=== PATIENT | male | born 1970 | race Caucasian/White ===

== ENCOUNTER → 2020-06-27 10:17 | Outpatient (CLI) | payer BC, SELFPAY ==
--- NOTE | ~2020-06-27 | MR_ITS ---
EXAMINATION: MR shoulder RT wo con DATE: 06/27/2020 11:02 INDICATION: Right shoulder pain. TECHNIQUE: Magnetic resonance imaging (MRI) of the right shoulder was performed without intravenous c ontrast. Sequences included axial PD-weighted FS FSE, coronal oblique PD-weighted FS FSE and T2-weigh denis FS FSE, and sagittal oblique T2-weighted FS FSE and T1-weighted FSE. COMPARISON: None. FINDINGS: Coracoacromial arch: The acromion undersurface is curved in morphology (type II). There is mild acromioclavicular joint os teoarthritis. There is mild subacromial/subdeltoid bursitis. Rotator cuff: There is mild supraspinatus and infraspinatus tendinopathy. Teres minor tendon is normal. There is mi ld subscapularis tendinopathy. No tear. There is no asymmetric fatty atrophy of the rotator cuff musc le bellies. Biceps tendon and glenoid labrum: Biceps tendon is in bicipital groove. There is mild intra-articular biceps tendinopathy. There is deg eneration of superior labrum without well-defined tear. Fluid: There is no glenohumeral joint effusion. Bones/cartilage: There is cartilage surface irregularity of humeral head. The glenoid cartilage is normal. IMPRESSION: 1. Mild rotator cuff tendinopathy. No tear. 2. Mild glenohumeral joint chondrosis. 3. Mild acromioclavicular joint osteoarthritis. 4. Mild subacromial/subdeltoid bursitis. 5. Mild intra-articular biceps tendinopathy. Reviewed, dictated and finalized at location A.
== END ==
DX: M19.011 Primary osteoarthritis, right shoulder (principal); M75.51 Bursitis of right shoulder
CPT/HCPCS: 73221

== ENCOUNTER 2020-11-05 18:29 | Emergency (ER) | payer BC, SELFPAY ==
[2020-11-05] VITALS (45 sets, daily range): BP systolic 114–141; BP diastolic 67–110; PULSE 66–160; RESP 10–28; O2SAT 95–100
--- NOTE | 2020-11-05 18:45 | PC.NURSE ---
patient here with atrial fibrillation. see triage notes. alert. oriented. on athletic monitor. EKG done. SL inserted. labs drawn. patient and updated on current treatment plan. waiting for orders from provider.
--- NOTE | 2020-11-05 18:46 | ECG_ITS ---
Measurements Intervals [place] Rate: 128 P: VA: 0 QRS: 13 QRSD: 85 T: -17 QT: 304 QTc: 445 Interpretive Statements ATRIAL FIBRILLATION WITH RAPID VENTRICULAR RESPONSE CANNOT RULE OUT SEPTAL INFARCT, AGE INDETERMINATE BORDERLINE ST ABNORMALITY- ANTEROLATERAL LEADS BASELINE ARTIFACT- I, II, III, AVR, AVL, AVF ABNORMAL ECG Electronically Signed On 11-06-2020 7:18:06 DIRECTOR TALENT ACQUISITION by Ike iGbbs D.O.
[2020-11-05 19:01] LABS: Basophils Percent Auto 0.5 % (0.2-1.2); Eosinophils Absolute Auto 0.1 K/mm3 (0-0.3); Hematocrit 41.1 % (42.0-52.0); Hemoglobin 14.5 g/dL (14.0-18.0); Immature Granulocyte Absolute 0.03 K/mm3 (0.00-0.031); Immature Granulocyte Percent A 0.4 % (0-0.5); Lymphocytes Absolute Auto 2.16 K/mm3 (0.9-3.2); Lymphocytes Percent Auto 26.9 % (18.3-44.2); Mean Corpuscular HGB Conc 35.3 g/dl (32-36); Mean Corpuscular Hemoglobin 31.9 pg (26-34); Mean Corpuscular Volume 90.3 fl (80-100); Mean Platelet Volume 8.9 fl (7.4-10.4); Monocytes Absolute Auto 0.5 K/mm3 (0.1-0.6); Monocytes Percent Auto 6.5 % (2.6-8.5); Neutrophils Absolute Auto 5.2 K/mm3 (1.3-6.7); Neutrophils Percent Auto 64.7 % (45.5-73.1); Platelet Count Result 198 k/mm3 (150-375); Red Blood Count 4.55 M/mm3 (4.6-6.20); Red Cell Distribution Width 11.8 % (11.5-14.5)
--- NOTE | 2020-11-05 19:06 | ED.ARRPALP ---
HPI - Arrhythmia/Palpitations General Chief Complaint: Arrhythmia/Palpitations Stated Complaint: I think I am in Afib Time Seen by Provider: 11/05/20 19:06 History of Present Illness HPI narrative: 50 yo male w/ h/o paroxysmal atrial fibrillation presents to the ED for atrial fibrillation. He syas that about 15 minutes prior to coming in he developed a fast irregular heart beat. This was associated with dizziness. This is consistent with his 2 previous episodes of atrial fibrillation. In the past he converted after a single dose of amiodarone. He is not currently on any treatment or anticoagulation. No CP, SOB, fever, chills. Related Data Home Medications Medication Instructions Recorded Confirmed No Home Medications 11/05/20 11/05/20 Allergies Allergy/AdvReac Type Severity Reaction Status Date / Time etomidate Allergy Unknown SEIZURES Verified 10/17/18 07:48 Review of Systems Review of Systems: All systems reviewed & are unremarkable except as noted in HPI and below Constitutional: Constitutional: Denies chills, Denies fatigue, Denies fever(s) and Denies weakness Cardiovascular: Cardiovascular: Denies chest pain and Reports rapid heart rate Respiratory: Respiratory: Denies dyspnea Gastrointestinal: Gastrointestinal: Denies nausea Musculoskeletal: Musculoskeletal: Denies back pain Neurologic: Denies confusion, Reports dizziness, Denies syncope, Denies numbness and Denies weakness Psychiatric: Psychiatric: Denies anxiety [facility] Past Medical History Medical History Paroxysmal atrial fibrillation Social History Social History Smoking status: Never smoker Substance use: never Exam Const: General: healthy appearing, no acute distress and alert Orientation/consciousness: patient oriented x3 HENMT: Head: normal to inspection Neck: Neck: normal visual inspection and no lymphadenopathy Chest: Chest palpation & inspection: no tenderness Resp: Effort & Inspection: normal respiratory effort Auscultation: clear to auscultation bilaterally, no rales, no rhonchi and no wheezes Cardio: Jugular venous distension: no JVD Rate: tachycardic Rhythm: abnormal rhythm irregularly irregular Heart sounds: no murmurs GI: Inspection: non-distended GI Palp: Yes Soft to palpation and No Tenderness to palpation present (GI) Skin: General skin exam: normal color Neuro: General: patient oriented x3 and moves all extremities Speech: normal speech Extrem: General: no edema Psych: Appearance: well kempt Affect: normal affect Course Vital Signs Vital signs: Vital Signs Pulse Rate 124 H 11/05/20 18:34 Respiratory Rate 20 11/05/20 18:34 Blood Pressure 141/87 H 11/05/20 18:34 Pulse Oximetry 100 11/05/20 18:34 Pulse Rate 72 11/05/20 23:01 Respiratory Rate 11 L 11/05/20 23:01 Blood Pressure 120/90 11/05/20 23:01 Pulse Oximetry 97 11/05/20 23:01 Procedures Procedural Sedation Procedural Sedation #1: Procedural Sedation Date: 11/05/20 Procedure: Sedation and Electrical cardioversion for atrial fibrillation Provider Performed: sedation and procedure Informed Consent Obtained: yes Equipment in Room: bag and mask, capnography, conveyor monitor, crash cart, oxygen, pulse oximeter and suction Plan for Sedation: moderate sedation ASA Class: I Mallampati Classification: class I NPO Status: last liquid food (hours ago) (2) Explanation to Patient/Family: Risk/Benefits/Alternatives and Pt/Family agreed with plan Pt. Educated on Procedural Sedation: Yes Re-evaluated immediately prior: Yes Preparation: conveyor monitor applied, pulse oximeter, capnometry used, supplemental O2 applied, suction/airway equipment at bedside and IV secured IV Propofol dose (mg): 70 Patient Tolerated Procedure: well and
[2020-11-05 19:13] LABS: INR 1.1; Prothrombin Time 14.8 Seconds (11.1-14.7)
[2020-11-05 19:14] LABS: Partial Thromboplastin Time 32.4 SECONDS (22.3-36.8)
[2020-11-05 19:15] LABS: Alanine Aminotransferase 40 U/L (4-50); Albumin Level 4.2 g/dL (3.5-5.1); Alkaline Phosphatase 77 U/L (38-126); Anion Gap 6 mmol/L (8-16); Aspartate Amino Transferase 32 U/L (17-59); Bilirubin,Total 0.7 mg/dL (0.2-1.3); Blood Urea Nitrogen 19 mg/dL (9-20); Calcium 9.1 mg/dL (8.4-10.2); Carbon Dioxide 28 mmol/L (22-30); Chloride 106 mmol/L (98-107); Estimated CRCL calculation 64 ml/min; Estimated Glomerular Filt Rate > 60; Glucose 122 mg/dL (75-110); Potassium 3.9 mmol/L (3.4-5.0); Sodium 140 mmol/L (137-145)
[2020-11-05 19:24] LABS: Troponin I < 0.012 ng/mL (0.000-0.034)
[2020-11-05] MEDS: AMIODARONE 150 MG/D5W 100 ML 150 MG/100 ML BAG 600 MG IV CONT (19:42)
[2020-11-05] MEDS: AMIODARONE 360 MG/D5W 200 ML 360 MG/200 ML BAG 33.33 MG IV CONT (19:52)
[2020-11-05 22:25] LABS: Troponin I < 0.012 ng/mL (0.000-0.034)
[2020-11-05] MEDS: PROPOFOL IV EMULSION 200 MG/20 ML VIAL (22:37)
--- NOTE | 2020-12-03 20:23 | PC.NURSE ---
late entry- 70mg propofol given by Dr. Abraham at 2205 on 11/05/2020 not 2237 as indicated on JAN.
== END 2020-11-05 23:07 | disposition home or self-care (01) ==
PROVIDERS: Emergency Medicine; Emergency Provider Emergency Medicine
DX: I48.0 Paroxysmal atrial fibrillation (principal); R94.31 Abnormal electrocardiogram [ECG] [EKG]
CPT/HCPCS: 36415; 80053; 84484; 85025; 85610; 85730; 92960; 93005; 96365; 96366; 96375; 99285; J0282; J2704

== ENCOUNTER 2023-09-03 01:19 | Day surgery (SDC) | payer BC, SELFPAY ==
[2023-07-30 08:52] VITALS: BMI 24.4
[2023-09-02 10:03] VITALS: BMI 24.4
[2023-09-03 07:44] VITALS: BP 110/81; PULSE 75; RESP 18; TEMP 36.1; O2SAT 98
[2023-09-03] MEDS: LACTATED RINGERS 1,000 ML 150 ML IV CONT (07:57)
--- NOTE | 2023-09-03 08:02 | PM.HPGS ---
History of Present Illness History of Present Illness Consent: Risks, benefits, and alternatives have been discussed and questions answered. Patient agrees to proceed with procedure. Chief complaint: neoplasm screening Narrative: Shayan Zamora is a 53 year old male here for first screening colonoscopy Review of Systems Constitutional: Constitutional: Denies headache(s) and Denies weakness Eyes: Eyes: Denies blurry vision ENT: Reports Normal hearing present, Denies headache(s) and Denies neck pain Cardiovascular: Cardiovascular: Denies chest pain and Denies dyspnea Respiratory: Respiratory: Denies dyspnea Gastrointestinal: Gastrointestinal: Reports no additional gastrointestinal complaints Genitourinary: Genitourinary: Denies dysuria Musculoskeletal: Musculoskeletal: Denies neck pain Integumentary/Breasts: Skin/Breast: Denies dry skin Neurologic: Reports Normal hearing present, Denies headache(s) and Denies weakness Psychiatric: Psychiatric: Denies anxiety Endocrine: Endocrine: Denies change in body appearance Hematologic/Lymphatic: Hematologic/Lymphatic: Denies easy bleeding Allergic/Immunologic: Allergic/Immunologic: Denies urticaria PMF Past Medical History Medical History (Updated 09/03/23 @ 08:02 by Marcus Mitchell MD) Colon cancer screening Paroxysmal atrial fibrillation Social History Social History Smoking status: Never smoker Alcohol intake: current Drinks per week: 6 Substance use: never Substance use type: does not use Living arrangements: with family Spiritual care concerns: No Meds Home Medications and Allergies Home Medications Medication Instructions Recorded Confirmed Type No Home Medications 11/05/20 09/03/23 History Allergies Allergy/AdvReac Type Severity Reaction Status Date / Time etomidate AdvReac Unknown Other Verified 09/03/23 07:43 Vital Signs Vital Signs - 24 hr 09/03/23 07:44 Temperature 97 F L Pulse Rate 75 Respiratory Rate 18 Blood Pressure 110/81 Pulse Oximetry 98 Oxygen Delivery Room Air Exam Const: General: comfortable and no acute distress HENMT: Face/Nose/Sinus: Normal nares present Eyes: General: appearance normal, both eyes and all related structures Neck: Neck: no JVD Resp: Auscultation: clear to auscultation bilaterally Cardio: Rate: regular rate Rhythm: regular rhythm GI: Inspection: non-distended GI Palp: Yes Soft to palpation Skin: General skin exam: normal color Neuro: General: gait normal Speech: normal speech Extrem: General: normal to inspection Psych: Mental Status: mental status grossly normal Assessment and Plan Assessment and plan (1) Colon cancer screening: Code(s): Z12.11 - Encounter for screening for malignant neoplasm of colon Status: Acute Assessment and Plan: colonoscopy
--- NOTE | 2023-09-03 08:06 | P.PNAN_ITS ---
Anes - Initial Pre Proc Eval Procedure: Operation Date: 09/03/23 09:00 Proposed Procedures p Screening Colonoscopy - Marcus Mitchell MD Date/Time: 09/03/23 08:06 Surgeon: Marcus Mitchell MD Pre Op Diagnosis: neoplasm screening Patient Data Age: 53 Gender: M Height: 1.75 m Weight: 75.6 kg Last Vital Signs Temp 97 F L 09/03/23 07:44 Pulse 75 09/03/23 07:44 Resp 18 09/03/23 07:44 BP 110/81 09/03/23 07:44 Pulse Ox 98 09/03/23 07:44 O2 Del Method Room Air 09/03/23 07:44 Allergies Allergy/AdvReac Type Severity Reaction Status Date / Time etomidate AdvReac Unknown Other Verified 09/03/23 07:43 Home Medications Medication Instructions Recorded Confirmed Type No Home Medications 11/05/20 09/03/23 History Patient hx anesthesia problems: none Family hx anesthesia problems: none Results Review: All pre-operative results and documents have been reviewed as part of the pre-operative evaluation. [facility] Past Medical History Medical History (Updated 09/03/23 @ 08:02 by Marcus Mitchell MD) Colon cancer screening Paroxysmal atrial fibrillation Social History Social History Smoking status: Never smoker Alcohol intake: current Drinks per week: 6 Substance use: never Substance use type: does not use Living arrangements: with family Spiritual care concerns: No Anes - Eval Final PreProcedure Day of Procedure 09/03/23 08:06 Patient weight: normal Heart: regular rate and rhythm Lungs: clear to auscultation Airway: Mallampati scale class II Neurological: alert and oriented Last oral intake: >/= 8 hours ASA classification: II Emergent: no Anesthetic plan: proceed Anesthesia type and monitoring: general GIVS and standard monitoring Results Review: All pre-operative results and documents have been reviewed as part of the pre- operative evaluation. Informed Consent: The patient's anesthetic plan and its attendant risks and benefits were discussed with the patient/family/POA. Questions were solicited and answers provided to the satisfaction of the patient/family/POA.
[2023-09-03 08:23] VITALS: BP 95/60; PULSE 70; RESP 20; O2SAT 98
[2023-09-03 08:33] VITALS: BP 102/67; PULSE 68; RESP 20; O2SAT 99
[2023-09-03 08:43] VITALS: BP 110/77; PULSE 72; RESP 20; O2SAT 99
== END 2023-09-03 08:54 | disposition home or self-care (01) ==
PROVIDERS: Visit Provider Internal Medicine Gastroenterology
PROC: 0DJD8ZZ Inspection of Lower Intestinal Tract, Via Natural or Artificial Opening Endoscopic (ICD-10-PCS; CPT 45378; principal; 2023-09-03 09:00)
DX: Z12.11 Encounter for screening for malignant neoplasm of colon (principal); K64.8 Other hemorrhoids
CPT/HCPCS: 45378; J2704; J7120